=== PATIENT | female | born 1995 | race Caucasian/White ===

== ENCOUNTER 2019-04-04 08:08 | Emergency (ER) | payer OTHER ==
--- NOTE | 2019-04-04 08:24 | PDOC ---
History of Present Illness - General Chief Complaint: Urinary Problem Stated Complaint: UTI Time Seen by Provider: 04/04/19 08:24 - History of Present Illness Initial Comments: 04/04/19 08:49 Chief complaint: Frequency of urination History of present illness: Patient is 3 weeks , complains of urinary frequency, minimal burning, no abnormal vaginal discharge or bleeding. Under the care of [facility], with follow-up appointment in 2 weeks. No kidney disease, prior UTI many years ago but none recently. No fever. Mild bilateral back pain, low back only. Review of systems: As above. Otherwise negative Past medical history: Patient denies significant medical or surgical problems past or present. This is her first Social/family history reviewed and noncontributory Physical exam: Alert and oriented well-developed well-nourished no acute distress cheerful and cooperative Afebrile, vital signs normal. Mucous membranes moist, adequate hydration. Abdomen soft and nontender. No masses No CVAT Urinalysis is clear. Urine culture performed and pending Impression: Frequency of urination, probably due to , no sign of UTI, but culture pending Plan: Check culture results in 2 days. Return if there is fever or increased upper back pain. Limit fluid intake at bedtime. Follow up with [facility] as scheduled. Past History - Past Medical History Allergies/Adverse Reactions: Allergies Allergy/AdvReac Type Severity Reaction Status Date / Time No Known Allergies Allergy Verified 04/04/19 08:09 Home Medications: Ambulatory Orders NK [No Known Home Medication] 04/04/19 COPD: No - Reproductive History Is Patient Now?: Yes - Suicide/Smoking/Psychosocial Hx Smoking History: Never smoked Have you smoked in the past 12 months: No Information on smoking cessation initiated: No Hx Alcohol Use: No Drug/Substance Use Hx: No *Physical Exam - Vital Signs Last Vital Signs Temp Pulse Resp BP Pulse Ox 98.9 F 73 20 141/91 100 04/04/19 08:09 04/04/19 08:09 04/04/19 08:09 04/04/19 08:09 04/04/19 08:09 *DC/Admit/Observation/Transfer Diagnosis at time of Disposition: Urinary frequency - Discharge Dispostion Disposition: HOME Condition at time of disposition: Stable Decision to Admit order: No - Referrals - Patient Instructions Additional Instructions: Preliminary urine test shows no sign of UTI. Urine culture is pending, takes 24- 48 hours for results. Check culture at that time. In the meantime, limit fluids before bedtime, see electrical maintenance supervisor as scheduled, see primary physician or return to ER if there is fever or increased back pain. - Post Discharge Activity
[2019-04-04 08:28] VITALS: BP 141/91; PULSE 73; TEMP 98.9; BMI 39.4
== END 2019-04-04 08:55 | disposition home or self-care (01) ==
LOC: FER 08:08
DX: R35.0 Frequency of micturition (principal)
CPT/HCPCS: 81003; 84703; 87086; 99282-25